=== PATIENT | male | born 1940 | race Caucasian/White ===

== ENCOUNTER 2017-11-14 19:03 | Emergency (ER) | payer MEDICARE ==
[2017-11-14] MEDS ORDERED: DOXA1TAB35 PO (19:55)
[2017-11-14] MEDS ORDERED: ASPI-516 CHEW (19:55)
[2017-11-14] MEDS ORDERED: CARD360C PO (19:55)
[2017-11-14] MEDS ORDERED: CIAL20TA PO (19:55)
[2017-11-14] MEDS ORDERED: DOXA1TAB36 PO (19:55)
[2017-11-14] MEDS ORDERED: ATOR40TA16 PO (19:55)
[2017-11-14] MEDS ORDERED: LOSA50TA PO (19:55)
[2017-11-14] MEDS ORDERED: ONDANSETRON HCL 4 MG/2 ML VIAL IV PUSH ONE (20:00)
[2017-11-14] MEDS ORDERED: SODIUM CHLORIDE 0.9% FLUSH 10 ML FLUSH IV FLUSH PRN (20:00)
[2017-11-14] MEDS ORDERED: GLUCAGON 1 MG/ML VIAL IV PUSH ONE (20:00)
--- NOTE | 2017-11-14 20:12 | PD ---
HPI Chief Complaint: Foreign Body Time Seen by Provider: 19:42 Travel History International Travel<30 days: No Contact w/Intl Traveler<30days: No Traveled to known affect area: No History of Present Illness HPI 77-year-old male here for evaluation of esophageal impaction. The patient reports that for the last hour and a half he has been unable to tolerate his secretions or any liquids. He reports similar episode in July of last year. He is from [place] and states that at that time he was seen in an emergency department and was provided a medication which cured his symptoms. He has not had an upper endoscopy either before or since this episode. States he was eating steamed vegetables today when his symptoms started. PFSH Past Medical History Diminished Hearing: No Tetanus Vaccination: > 5 Years Influenza Vaccination: Yes ?: Not Past Surgical History Tonsillectomy: Yes Other Surgery: Yes (LEFT WRIST , R HIP , R LITTLE FINGER ) Social History Alcohol Use: Yes (SCOTCH DAILY) Tobacco Use: No (QUIT 1970) Substance Use: No Allergies-Medications (Allergen,Severity, Reaction): Coded Allergies: amlodipine (Verified Allergy, Unknown, 11/14/17) hydrochlorothiazide (Verified Allergy, Unknown, 11/14/17) lisinopril (Verified Allergy, Unknown, 11/14/17) sildenafil (Verified Allergy, Unknown, 11/14/17) Reported Meds & Prescriptions Reported Meds & Active Scripts Active Reported Cialis (Tadalafil) 20 Mg Tab 20 Mg PO DAILY PRN Do not exceed 1 dose/day. Aspirin 81 Mg Chew 81 Mg CHEW ONCE Losartan (Losartan Potassium) 50 Mg Tab 50 Mg PO BID Doxazosin (Doxazosin Mesylate) 2 Mg Tab 2 Mg PO HS Doxazosin (Doxazosin Mesylate) 1 Mg Tab 1 Mg PO DAILY Cardizem CD 24 HR (Diltiazem CD 24 HR) 360 Mg Caper 300 Mg PO DAILY Atorvastatin (Atorvastatin Calcium) 40 Mg Tab 40 Mg PO HS Review of Systems Except as stated in HPI: all other systems reviewed are Neg Physical Exam Narrative GENERAL: Well-developed, well-nourished, comfortable, spitting clear sputum into an emesis bag. SKIN: Focused skin assessment warm/dry. HEAD: Atraumatic. Normocephalic. EYES: Pupils equal and round. No scleral icterus. No injection or drainage. ENT: Mucous membranes pink and moist. NECK: Trachea midline. No JVD. CARDIOVASCULAR: Regular rate and rhythm. No murmur appreciated. RESPIRATORY: No accessory muscle use. Clear to auscultation. Breath sounds equal bilaterally. GASTROINTESTINAL: Abdomen soft, non-tender, nondistended. MUSCULOSKELETAL: No obvious deformities. No clubbing. No cyanosis. No edema. NEUROLOGICAL: Awake and alert. No obvious cranial nerve deficits. Motor grossly within normal limits. Normal speech. PSYCHIATRIC: Appropriate mood and affect; insight and judgment normal. Data Data Orders Orders Basic Metabolic Panel (Bmp) (11/14/17 19:47) Complete Blood Count With Diff (11/14/17 19:47) Prothrombin Time / Inr (Pt) (11/14/17 19:47) Act Partial Throm Time (Ptt) (11/14/17 19:47) Iv Access Insert/Monitor (11/14/17 19:47) Ecg Monitoring (11/14/17 19:47) Oximetry (11/14/17 19:47) Sodium Chloride 0.9% Flush (Ns Flush) (11/14/17 20:00) Ondansetron Inj (Zofran Inj) (11/14/17 20:00) Glucagon Inj (Glucagon Inj) (11/14/17 20:00) Panendo (11/14/17 ) Labs Laboratory Tests Test 11/14/17 20:20 White Blood Count 4.5 TH/MM3 Red Blood Count 4.42 MIL/MM3 Hemoglobin 14.9 GM/DL Hematocrit 45.3 % Mean Corpuscular Volume 102.4 FL Mean Corpuscular Hemoglobin 33.7 PG Mean Corpuscular Hemoglobin Concent 32.9 % Red Cell Distribution Width 12.4 % Platelet Count 277 TH/MM3 Mean Platelet Volume 7.3 FL Neutrophils (%) (Auto) 65.9 % Lymphocytes (%) (Auto) 20.3 % Monocytes (%) (Auto) 9.6 % Eosinophils (%) (Auto) 1.7 % Basophils (%) (Auto) 2.5 % Neutrophils # (Auto) 3.0 TH/MM3 Lymphocytes # (Auto) 0.9 TH/MM3 Monocytes # (Auto) 0.4 TH/MM3 Eosinophils # (Auto) 0.1 TH/MM3 Basophils # (Auto) 0.1 TH/MM3 CBC Comment DIFF FINAL Differential Comment Prothrombin Time 10.0 SEC Prothromb Time International Ratio 1.0 RATIO Activated Partial Thromboplast Time 25.6 SEC Blood Urea Nitrogen 21 MG/DL Creatinine 1.10 MG/DL Random Glucose 93 MG/DL Calcium Level 8.5 MG/DL Sodium Level 138 MEQ/L Potassium Level 5.5 MEQ/L Chloride Level 107 MEQ/L Carbon Dioxide Level 23.9 MEQ/L Anion Gap 7 MEQ/L Estimat Glomerular Filtration Rate 65 ML/MIN MDM Medical Decision Making Medical Screen Exam Complete: Yes Emergency Medical Condition: Yes Differential Diagnosis Esophageal impaction, esophageal stricture, esophageal mass Narrative Course Shortly after evaluating the patient, discussed the case with on-call analytics director Dr. Elder who is currently at the [facility], however states he will present here in [place] and about 1.5 hours to evaluate the patient and likely perform endoscopy. In the meantime the patient will be provided glucagon. Vital signs and labs reviewed. The patient was given glucagon and Zofran. He had 2 episodes of vomiting and afterwards states he felt significantly improved. He was able to tolerate clear liquids. I discussed this with Dr. Elder. The patient was given the choice of having endoscopy tonight or to follow-up with him as an outpatient. He prefers to follow-up as an outpatient. Patient advised to eat a soft mechanical diet. He was informed on when to return to the emergency department. He verbalizes understanding and agreement with plan. Diagnosis Primary Impression: Esophageal obstruction due to food impaction Referrals: Jaiden Elder MD 1 week Additional Instructions: Follow-up with analytics director Dr. Elder this week. Return to the emergency department for worsening symptoms or any other concerns. Disposition: 01 DISCHARGE HOME Condition: Stable Philipp Downing MD Nov 14, 2017 20:12
[2017-11-14 20:29] LABS: BASOPHIL # 0.1 TH/MM3 (0-0.2); BASOPHIL % 2.5 % (0.0-2.0); EOSINOPHIL # 0.1 TH/MM3 (0-0.4); EOSINOPHIL % 1.7 % (0.0-4.0); HEMATOCRIT 45.3 % (39.0-51.0); HEMOGLOBIN 14.9 GM/DL (13.0-17.0); LYMPH % 20.3 % (9.0-44.0); LYMPHOCYTE # 0.9 TH/MM3 (1.0-4.8); MEAN CELL VOLUME 102.4 FL (80.0-100.0); MEAN CORPUSCULAR HEMOGLOBIN 33.7 PG (27.0-34.0); MEAN CORPUSCULAR HGB CONC 32.9 % (32.0-36.0); MEAN PLATELET VOLUME 7.3 FL (7.0-11.0); MONO % 9.6 % (0.0-8.0); MONOCYTE # 0.4 TH/MM3 (0-0.9); NEUT % 65.9 % (16.0-70.0); PLATELET COUNT 277 TH/MM3 (150-450); RED BLOOD COUNT 4.42 MIL/MM3 (4.50-5.90); RED CELL DISTRIBUTION WIDTH 12.4 % (11.6-17.2); WHITE BLOOD COUNT 4.5 TH/MM3 (4.0-11.0)
[2017-11-14 20:43] LABS: BICARBONATE 23.9 MEQ/L (21.0-32.0); CALCIUM 8.5 MG/DL (8.5-10.1)
[2017-11-14 20:46] LABS: CREATININE 1.1 MG/DL (0.60-1.30)
== END 2017-11-14 22:01 | disposition home or self-care (01) ==
LOC: PHEFT 19:03
DX: T18.128A Food in esophagus causing other injury, initial encounter (principal); X58.XXXA Exposure to other specified factors, initial encounter; Z88.8 Allergy status to other drugs, medicaments and biological substances; Z79.82 Long term (current) use of aspirin; Z79.899 Other long term (current) drug therapy
CPT/HCPCS: 80048; 85025; 85610; 85730; 96374; 96375; 99284; J1610; J2405